=== PATIENT | male | born 1955 | race Caucasian/White ===

== ENCOUNTER 2025-05-21 18:48 | Emergency (ER) | payer MEDICARE ==
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
--- NOTE | 2025-05-21 21:03 | XR ---
EXAMINATION TYPE: XR chest 1V portable DATE OF EXAM: 05/21/2025 8:54 PM COMPARISON: Chest radiograph 10/25/2015. CLINICAL INDICATION: Male, 69 years old with history of trauma; [facility] TECHNIQUE: XR chest 1V portable Frontal view of the chest. FINDINGS: Lungs/Pleura: There is no evidence of pleural effusion, focal consolidation, or pneumothorax. Pulmonary vascularity: Unremarkable. Heart/mediastinum: Cardiomediastinal silhouette is unremarkable. Musculoskeletal: No acute osseous pathology. Other findings: None IMPRESSION: No acute cardiopulmonary disease/process. [facility], , 05/21/2025 9:01 PM
[2025-05-21 21:13] LABS: Basophils # (A) 0.06 10*3/uL (0.00-0.10); Basophils % (A) 0.4 %; Eosinophils # (A) 0.11 10*3/uL (0.04-0.35); Eosinophils % (A) 0.7 %; HCT 44.2 % (39.6-50.0); HGB 14.8 g/dL (13.0-17.0); Lymphocytes # (A) 1.35 10*3/uL (0.90-5.00); Lymphocytes % (A) 8.6 %; MCH 29.3 pg (27.0-32.0); MCHC 33.5 g/dL (32.0-37.0); MCV 87.5 fL (80.0-97.0); Mean Platelet Volume 9.6 fL (9.5-12.2); Monocytes # (A) 1.31 10*3/uL (0.20-1.00); Monocytes % (A) 8.3 %; Neutrophils # (A) 12.83 10*3/uL (1.80-7.70); Neutrophils % (A) 81.7 %; Platelet Count 217 10*3/uL (140-440); RBC 5.05 10*6/uL (4.40-5.60); RDW 13.4 % (11.5-14.5); WBC 15.71 10*3/uL (4.50-10.00)
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
[2025-05-21 21:36] LABS: Prothrombin Time 10.9 sec (10.0-12.5)
[2025-05-21 21:51] LABS: ALT 25 U/L (4-49); AST 27 U/L (17-59); African American GFR (CKD) 46 (>60 ml/min/1.73 sqM); Albumin 4.5 g/dL (3.5-5.0); Alcohol <10 mg/dL; Alkaline Phosphatase 46 U/L (38-126); Anion Gap 16 mmol/L; Blood Urea Nitrogen 26 mg/dL (9-20); Calcium 10.3 mg/dL (8.4-10.2); Carbon Dioxide 19 mmol/L (22-30); Chloride 104 mmol/L (98-107); Glucose 209 mg/dL (74-99); Non-African American GFR(CKD) 39 (>60 ml/min/1.73 sqM); Sodium 139 mmol/L (137-145); Total Bilirubin 2.1 mg/dL (0.2-1.3); Total Protein 7.2 g/dL (6.3-8.2)
[2025-05-21 21:53] LABS: Potassium 4.4 mmol/L (3.5-5.1)
[2025-05-21 22:16] LABS: Partial Thromboplastin Time 19.3 sec (22.0-30.0)
[2025-05-21 22:17] LABS: Amphetamine Screen,Urine Not Detected (NotDetected); Barbiturate Screen,Urine Not Detected (NotDetected); Benzodiazepines Screen,Urine Not Detected (NotDetected); Cocaine Screen,Urine Not Detected (NotDetected); Methadone Screen, Urine Not Detected (NotDetected); Opiate Screen,Urine Not Detected (NotDetected); Oxycodone Screen, Urine Not Detected (NotDetected); Phencyclidine Screen,Urine Not Detected (NotDetected); Tricyclic Antidepressant,Urine Not Detected (NotDetected); Urn Cannabinoid Scrn Not Detected (NotDetected)
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
[2025-05-21] MEDS: DIPH,PERTUS(ACELL)TETVAC-LF 0.5 ML VIAL IM ONE (23:45)
[2025-05-21] MEDS: BACITRACIN OINT 1 EACH PACKET TOPICAL ONE ×2 (23:45)
[2025-05-21] MEDS: ceFAZolin 2 GM in DEXTROSE 5% IN WATER 50 ML IVPB ONE (23:54)
[2025-05-22 05:14] LABS: Glucose,Whole Blood 194 mg/dL (70-110)
[2025-05-22] MEDS: LORazepam 1 MG/0.5 ML VIAL IV STA (11:25)
[2025-05-22] MEDS: KETOROLAC 15 MG/ML 1 ML VIAL IVP STA (11:26)
[2025-05-23 02:42] VITALS: RESP 16
[2025-05-23 13:41] VITALS: BP 124/69; PULSE 91; TEMP 98.5
== END 2025-05-23 15:45 ==
LOC: EC 18:48
DX: F32.A Depression, unspecified (principal); T14.91XA Suicide attempt, initial encounter; Z87.891 Personal history of nicotine dependence; Z23 Encounter for immunization; X78.1XXA Intentional self-harm by knife, initial encounter
CPT/HCPCS: 82075; 36415 ×2; 93005; 86900; 86901; 80053; 83605 ×2; 84484; 85025; 85610; 85730; 86850; 80306; 80320; 87635; 71045; 71275; 74174; 90715; 99285; 96365; 96366; 90471; 96375; J2060; J0690; J1885; Q9967

== ENCOUNTER → 2025-06-20 | Outpatient (CLI) | payer MEDICARE ==
[2025-06-20 19:39] LABS: Anion Gap 13.10 mmol/L (4.00-12.00); BUN/Creat Ratio 21.11 Ratio (12.00-20.00); Blood Urea Nitrogen 19.0 mg/dL (9.0-27.0); Carbon Dioxide 24.9 mmol/L (21.6-31.8); Chloride 104 mmol/L (96-109); Glucose 94 mg/dL (70-110); Potassium 4.1 mmol/L (3.5-5.5); Sodium 142 mmol/L (135-145)
[2025-06-20 19:40] LABS: Calcium 9.5 mg/dL (8.7-10.3)
[2025-06-21 02:11] LABS: Basophils # (A) 0.07 X 10*3/uL (0.00-0.10); Basophils % (A) 1.1 %; Eosinophils # (A) 0.17 X 10*3/uL (0.04-0.35); Eosinophils % (A) 2.6 %; HCT 43.7 % (39.6-50.0); HGB 14.0 g/dL (13.0-17.0); Immature Grans, Automated 0.20 %; Lymphocytes # (A) 1.54 X 10*3/uL (0.90-5.00); Lymphocytes % (A) 23.3 %; MCH 29.1 pg (27.0-32.0); MCHC 32.0 g/dL (32.0-37.0); MCV 90.9 FL (80.0-97.0); Monocytes # (A) 0.75 X 10*3/uL (0.20-1.00); Monocytes % (A) 11.3 %; NRBC Per 100 WBC 0 X 10*3/uL (0.00-0.01); Neutrophils # (A) 4.07 X 10*3/uL (1.80-7.70); Neutrophils % (A) 61.5 %; Platelet Count 202 X 10*3/uL (140-440); RBC 4.81 X 10*6/uL (4.40-5.60); RDW 14.2 % (11.5-14.5); WBC 6.61 X 10*3/uL (4.50-10.00)
== END | disposition home or self-care (01) ==
LOC: LABWHC1 12:56
PROVIDERS: ATTEND Urology
DX: Z01.812 Encounter for preprocedural laboratory examination (principal); R97.20 Elevated prostate specific antigen [PSA]
CPT/HCPCS: 80048; 85025

== ENCOUNTER 2025-06-23 10:23 | Day surgery (SDC) | payer MEDICARE ==
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
[2025-06-23 11:55] LABS: Glucose,Whole Blood 140 mg/dL (70-110)
[2025-06-23 11:57] VITALS: TEMP 97.8
[2025-06-23] MEDS: IV FLUID CONTINUATION 1,000 ML IV ONE ×2 (12:05→13:26)
[2025-06-23] MEDS: LACTATED RINGERS 1,000 ML IV SCH (12:07)
[2025-06-23] MEDS: GENTAMICIN 40 MG/ML 2 ML VIAL IM PRN (12:08)
[2025-06-23] MEDS ORDERED: fentaNYL (PF) 50 MCG/ML 2 ML AMP ONE (13:05)
[2025-06-23] MEDS ORDERED: MIDAZOLAM 2 MG/2 ML VIAL ONE (13:05)
[2025-06-23] MEDS ORDERED: PROPOFOL 10 MG/ML 20 ML VIAL IV ONE (13:05)
--- NOTE | 2025-06-23 13:27 | P.OP ---
Date of Procedure: 06/23/25 Preoperative Diagnosis: Elevated PSA level Postoperative Diagnosis: Same Procedure(s) Performed: Transrectal ultrasound of the prostate with ultrasound-guided biopsy Anesthesia: MAC Surgeon: Cory Landaverde Estimated Blood Loss (ml): 5 IV fluids (ml): 300 Pathology: other (Prostate biopsies) Condition: stable Disposition: PACU Indications for Procedure: The patient is a 69-year-old male with a persistently elevated PSA level, which has been gradually rising and was most recently 34.9. Biopsies were previously scheduled in 2018, but he canceled the biopsies due to anxiety. He reports moderate obstructive voiding symptoms but has been verified to be emptying his bladder completely. He has a family history of prostate cancer (father). Operative Findings: Large hypoechoic lesion within the left transitional zone at the apex. Description of Procedure: The patient was taken to the operating room and placed in the left lateral decubitus position. RAMÓN revealed the prostate to be moderately enlarged but smooth. The [employer] transrectal ultrasound probe was placed intrarectally. The prostate was imaged in both the axial and sagittal planes, revealing a prostate volume of 75.37 mL. The bladder appeared normal. The seminal vesicles appeared normal. No abnormalities were seen within the central zone or the peripheral zone. However, a large hypoechoic lesion was seen within the left transitional zone near the apex. 12 biopsies of the peripheral zone were obtained utilizing a standard template. 2 additional biopsies were obtained from the transitional zone on each side. Once the procedure was completed, the ultrasound probe was removed. The patient tolerated the procedure well was taken to the recovery room stable condition.
[2025-06-23 13:49] VITALS: BP 109/75; PULSE 97; RESP 16
== END 2025-06-23 14:04 | disposition home or self-care (01) ==
LOC: OR 10:23
PROVIDERS: ATTEND Urology
DX: R97.20 Elevated prostate specific antigen [PSA] (principal); N41.0 Acute prostatitis; E11.9 Type 2 diabetes mellitus without complications; I10 Essential (primary) hypertension; Z87.891 Personal history of nicotine dependence
CPT/HCPCS: 55700; G0416; 88305; 88344